=== PATIENT | male | born 1960 | race Caucasian/White ===

== ENCOUNTER 2019-10-08 20:46 | Emergency (ER) | payer MEDICAID, OTHER ==
[~2019-10-08] VITALS: Ht 195.6 cm; Wt 108.9 kg
[~2019-10-08 20:46] MED LIST: BACTRIM-DS1 EA PO; GABAPENTIN600 MG PO; MULTIVITAMINS1 EAC2 PO; NORCO 5-325 TA1 EACH PO; NORVIR100 MG PO; PREZISTA600 MG PO; TRUVADA1 TAB PO; XANAX0.5 MG PO
--- NOTE | 2019-10-08 20:46 | NUR ---
ED Nurse Note: Pt brought in by RA from home for c/o abdominal pain due to hiatal hernia x2 hours ago. Denies nausea, vomiting and diarrhea. Afebrile. Not in any distress. VSS.
[2019-10-08] MEDS ORDERED: Ketorolac 30mg Inj IV ONE (21:00)
[2019-10-08] MEDS ORDERED: Metoclopramide 10mg/2ml Inj IVP ONE (21:00)
--- NOTE | 2019-10-08 21:00 | NUR ---
ED Nurse Note: ERMD at bedside.
--- NOTE | 2019-10-08 21:04 | Emergency Room Report ---
History of Present Illness General Chief Complaint: Abdominal Pain Source: Patient Present Illness HPI Patient has a chronic ventral hernia. He is complaining about pain is not controlled by tramadol at this time. He denies any nausea, vomiting or diarrhea. He is able to move his bowels. The pain is mid abdomen in the upper area. Is worse when he presses on it. He had a recent CT scan that did not show any strangulation. It did reveal a left renal mass. He saw his urologist. He rates the pain 9/10 at this time. He denies any fevers or chills. He says the last time he was treated in the emergency department he received morphine. He is moving his bowels without difficulty No chest pain, cough or shortness of breath. No sore throat, chest pain, palpitations, diarrhea, dysuria, joint pain, rashes , visual changes, dizziness, headache. Patient has a history of HIV. The patient is being treated for depression and anxiety. He denies suicidal or homicidal ideation. Allergies: Coded Allergies: DIPHENHYDRAMINE HCL (Unverified Allergy, Mild, 09/07/12) HEART RACES SERTRALINE (Unverified Allergy, Unknown, 10/08/19) Uncoded Allergies: BENNADRL (Allergy, Unknown, 10/08/19) Patient History Past Medical History: see triage record Reviewed Nursing Documentation: PMH: Agreed; PSxH: Agreed Nursing Documentation-PMH Past Medical History: No History, Except For Hx Hypertension: Yes History Of Psychiatric Problem: Yes Hx Seizures: Yes Review of Systems All Other Systems: negative except mentioned in HPI Physical Exam Vital Signs Date Time Temp Pulse Resp B/P (MAP) Pulse Ox O2 Delivery O2 Flow Rate FiO2 10/08/19 20:38 99.1 89 20 176/93 (120) 100 Room Air Sp02 EP Interpretation: reviewed, normal General Appearance: well appearing, no apparent distress, GCS 15 Head: normocephalic Eyes: bilateral eye normal inspection, bilateral eye PERRL, bilateral eye EOMI ENT: moist mucus membranes Neck: supple Respiratory: lungs clear, normal breath sounds Cardiovascular #1: regular rate, rhythm Cardiovascular #2: 2+ radial (R) Gastrointestinal: normal inspection, normal bowel sounds, soft, no mass, non- distended, no guarding, no rebound, tenderness - Between bellybutton and xiphoid Genitourinary: no CVA tenderness Musculoskeletal: back normal, normal range of motion, gait/station normal Neurologic: alert, oriented - X2, grossly normal, other - Prefers to keep eyes closed Psychiatric: mood/affect normal Skin: no rash, warm/dry Medical Decision Making Diagnostic Impression: Primary Impression: Abdominal pain Qualified Codes: R10.9 - Unspecified abdominal pain ER Course Patient presents with upper abdominal pain with history of ventral hernia. Differential includes ventral hernia, gastritis, pancreatitis amongst others. X -rays are indicated as well as labs. The patient will receive Reglan and Toradol and Pepcid for pain. He will also receive IV hydration. Labs unremarkable. Abdominal films without obstruction. Patient sleeping without discomfort. Based on this no further imaging indicated at this time. Discussed results with patient and the need to follow-up with his own private physician. Patient stable for outpatient observation and treatment. Laboratory Tests Test 10/08/19 21:04 10/08/19 21:31 White Blood Count 5.2 K/UL (4.8-10.8) Red Blood Count 4.72 M/UL (4.70-6.10) Hemoglobin 12.5 G/DL (14.2-18.0) L Hematocrit 39.8 % (42.0-52.0) L Mean Corpuscular Volume 84 FL (80-99) Mean Corpuscular Hemoglobin 26.4 PG (27.0-31.0) L Mean Corpuscular Hemoglobin Concent 31.3 G/DL (32.0-36.0) L Red Cell Distribution Width 13.7 % (11.6-14.8) Platelet Count 230 K/UL (150-450) Mean Platelet Volume 6.9 FL (6.5-10.1) Neutrophils (%) (Auto) 67.1 % (45.0-75.0) Lymphocytes (%) (Auto) 18.6 % (20.0-45.0) L Monocytes (%) (Auto) 10.7 % (1.0-10.0) H Eosinophils (%) (Auto) 2.7 % (0.0-3.0) Basophils (%) (Auto) 0.9 % (0.0-2.0) Prothrombin Time 10.1 SEC (9.30-11.50) Prothrombin Time INR 0.9 (0.9-1.1) Activated Partial Thromboplast Time 26 SEC (23-33) Sodium Level 140 MMOL/L (136-145) Potassium Level 4.2 MMOL/L (3.5-5.1) Chloride Level 105 MMOL/L (98-107) Carbon Dioxide Level 28 MMOL/L (21-32) Anion Gap 7 mmol/L (5-15) Blood Urea Nitrogen 22 mg/dL (7-18) H Creatinine 1.3 MG/DL (0.55-1.30) Estimate Glomerular Filtration Rate 56.5 mL/min (>60) Glucose Level 120 MG/DL (74-106) H Calcium Level 8.9 MG/DL (8.5-10.1) Total Bilirubin 0.4 MG/DL (0.2-1.0) Aspartate Amino Transferase (AST) 46 U/L (15-37) H Alanine Aminotransferase (ALT) 39 U/L (12-78) Alkaline Phosphatase 130 U/L (46-116) H Total Protein 7.7 G/DL (6.4-8.2) Albumin 3.5 G/DL (3.4-5.0) Globulin 4.2 g/dL Albumin/Globulin Ratio 0.8 (1.0-2.7) L Lipase 116 U/L (73-393) Urine Color Yellow Urine Appearance Clear Urine pH 5 (4.5-8.0) Urine Specific [place] 1.020 (1.005-1.035) Urine Protein Negative (NEGATIVE) Urine Glucose (UA) Negative (NEGATIVE) Urine Ketones Negative (NEGATIVE) Urine Blood Negative (NEGATIVE) Urine Nitrite Negative (NEGATIVE) Urine Bilirubin Negative (NEGATIVE) Urine Urobilinogen 1 MG/DL (0.0-1.0) H Urine Leukocyte Esterase Negative (NEGATIVE) Other X-Ray Diagnostic Results Other X-Ray Diagnostic Results : X-Ray ordered: abd # of Views/Limited Vs Complete: 2 View Indication: Pain EP Interpretation: Yes Interpretation: nonspecific bowel gas, no sbo, other - gall stone Impression: Other Electronically Signed by: Electronically signed by Cash Luna MD Last Vital Signs Date Time Temp Pulse Resp B/P (MAP) Pulse Ox O2 Delivery O2 Flow Rate FiO2 10/09/19 02:04 97.9 86 19 145/78 97 Room Air Status: improved Disposition: HOME, SELF-CARE Condition: Improved Scripts Acetaminophen (Tylenol) 325 Mg Tablet 650 MG ORAL Q6H PRN for Prn Pain/Headache/Temp > 101, #20 TAB 0 Refills Prov: Cash Luna MD 10/09/19 Cash Luna MD Oct 08, 2019 21:04
--- NOTE | 2019-10-08 21:10 | NUR ---
ED Nurse Note: IV line establisheed. Blood and urine specimen collected and sent to lab.
[2019-10-08 21:25] LABS: BASOPHILS % (AUTO) 0.9 % (0.0-2.0); EOSINOPHILS % (AUTO) 2.7 % (0.0-3.0); HEMATOCRIT 39.8 % (42.0-52.0); HEMOGLOBIN 12.5 G/DL (14.2-18.0); LYMPHOCYTES % (AUTO) 18.6 % (20.0-45.0); MEAN CORPUSCULAR VOLUME 84 FL (80-99); MONOCYTES % (AUTO) 10.7 % (1.0-10.0); NEUTROPHILS % (AUTO) 67.1 % (45.0-75.0); PLATELET COUNT 230 K/UL (150-450); RED BLOOD COUNT 4.72 M/UL (4.70-6.10); RED CELL DISTRIBUTION WIDTH 13.7 % (11.6-14.8); WHITE BLOOD COUNT 5.2 K/UL (4.8-10.8)
[2019-10-08 21:29] LABS: ANION GAP 7 mmol/L (5-15); BLOOD UREA NITROGEN 22 mg/dL (7-18); CALCIUM 8.9 MG/DL (8.5-10.1); CARBON DIOXIDE 28 MMOL/L (21-32); CHLORIDE 105 MMOL/L (98-107); CREATININE 1.3 MG/DL (0.55-1.30); POTASSIUM 4.2 MMOL/L (3.5-5.1); SODIUM 140 MMOL/L (136-145)
[2019-10-08 21:33] LABS: ALANINE AMINOTRANSFERASE 39 U/L (12-78); ALBUMIN 3.5 G/DL (3.4-5.0); ALBUMIN/GLOBULIN RATIO 0.8 (1.0-2.7); ALKALINE PHOSPHATASE 130 U/L (46-116); ASPARTATE AMINO TRANSFERASE 46 U/L (15-37); BILIRUBIN,TOTAL 0.4 MG/DL (0.2-1.0)
[2019-10-08 21:37] LABS: INR 0.9 (0.9-1.1)
[2019-10-08 21:45] VITALS: BP 176/93
--- NOTE | 2019-10-08 21:45 | NUR ---
Note tony in EDM - 10/08/19 at 2232 by EMILY ED Nurse Note: Pt brought in by RA from home for c/o abdominal pain due to hiatal hernia x2 hours ago. Denies nausea, vomiting and diarrhea. Afebrile. Not in any distress. VSS.
[2019-10-08 21:56] LABS: APPEARANCE,URINE CLEAR; BILIRUBIN, URINE NEGATIVE (NEGATIVE); GLUCOSE, URINE (UA) NEGATIVE (NEGATIVE); KETONES,URINE NEGATIVE (NEGATIVE); LEUKOCYTE ESTERASE ,URINE NEGATIVE (NEGATIVE); NITRITE,URINE NEGATIVE (NEGATIVE); PH,URINE 5 (4.5-8.0); PROTEIN,URINE NEGATIVE (NEGATIVE); UROBILINOGEN,URINE 1 MG/DL (0.0-1.0)
[2019-10-08 22:01] LABS: COLOR,URINE YELLOW
[2019-10-08 23:32] VITALS: BP 162/72
--- NOTE | 2019-10-08 23:35 | NUR ---
ED Nurse Note: Pt seen sleeping in bed. Not in any distress. Afebrile. NS 1L @300ml/hr infusing well. VSS.
[2019-10-09] MEDS ORDERED: TYLENOL325 MG ORAL (01:35)
--- NOTE | 2019-10-09 01:52 | NUR ---
ED Nurse Note: Pt cleared by NILTON for discharge. DC instructions/prescription was given and explained to pt and verbalized understanding of teachings. All medical deviecs such as ID band removed. Pt is AAO x4, ambulatory and left with all personal belongings. Pt took a taxi going home. Addendum: 10/09/19 at 0208 by EMILY ED Nurse Note: IV line removed with no complication.
[2019-10-09 02:04] VITALS: BP 145/78
--- NOTE | 2019-10-09 11:47 | Diagnostic Imaging Report ---
Indication: Abdominal pain Comparison: None Single view of the abdomen obtained Findings: Bowel gas pattern is nonspecific. No mass or abnormal gas collections are identified. The bones are unremarkable. There is a rounded calcification in the right upper quadrant of the abdomen likely gallstone. Impression: No acute findings. Gallstone suspected.
== END 2019-10-09 01:52 | disposition home or self-care (01) ==
LOC: EDBD 20:46 → EMR 22:45
DX: R10.10 Upper abdominal pain, unspecified (principal); K43.9 Ventral hernia without obstruction or gangrene; I10 Essential (primary) hypertension; G40.909 Epilepsy, unspecified, not intractable, without status epilepticus; Z88.8 Allergy status to other drugs, medicaments and biological substances; Z21 Asymptomatic human immunodeficiency virus [HIV] infection status
CPT/HCPCS: 36415; 74018; 80053; 81003; 83690; 85025; 85610; 85730; 96361; 96374; 96375; J1885; J2765; J7030; S0028; Z7502; 99284